=== PATIENT | male | born 1975 | race Caucasian/White ===

== ENCOUNTER 2017-07-13 23:05 | Observation (INO) | payer BC, OTHER ==
[2017-07-13 23:17] VITALS: BMI 36.0
--- NOTE | 2017-07-14 00:24 | ED PDOC ---
Arrival/HPI - General Chief Complaint: Chest Pain Time Seen by Provider: 07/13/17 23:18 Historian: Patient - History of Present Illness Narrative History of Present Illness (Text): 07/14/17 00:11 Jose Roberto Clay is a 41 year old male smoker, whose past medical history includes hypertension and hyperlipidemia, who presents to the Emergency department complaining of chest pain. Patient states he has been experiencing mid-sternal chest pressure since yesterday radiating to his neck and right arm. Patient notes he was seen by PMD yesterday for similar complaint and advised to come to the ER for further evaluation but was unable to due to a prior engagement. Patient states pain worsened today and he took Aspirin at home prior to presenting to the Emergency room. Patient reports he is non-compliant with his hypertension medication. Patient denies any fever, chills, shortness of breath, nausea, vomiting, diarrhea, urinary symptoms, back pain, neck pain, headache, dizziness, trauma/injury, or any other complaints. PMD: Dr. Alston Symptom Onset: Gradual Symptom Course: Unchanged Activities at Onset: Light Context: Home Past Medical History - Provider Review Nursing Documentation Reviewed: Yes - Past Medical History Past Medical History: No Previous - Cardiac Hx Cardiac Disorders: No - Pulmonary Hx Respiratory Disorders: No - Neurological Hx Neurological Disorder: No - HEENT Hx HEENT Disorder: No - Renal Hx Renal Disorder: No - Endocrine/Metabolic Hx Endocrine Disorders: Yes Other/Comment: Fatty liver - Hematological/Oncological Hx Blood Disorders: No - Integumentary Hx Dermatological Disorder: No - Musculoskeletal/Rheumatological Hx Musculoskeletal Disorders: No - Gastrointestinal Hx Gastrointestinal Disorders: No - Genitourinary/Gynecological Hx Genitourinary Disorders: No - Psychiatric Hx Depression: No Hx Emotional Abuse: No Hx Physical Abuse: No Hx Substance Use: No - Past Surgical History Past Surgical History: No Previous - Suicidal Assessment Feels Threatened In Home Enviroment: No Family/Social History - Physician Review Nursing Documentation Reviewed: Yes Family/Social History: Unknown Family HX Smoking Status: Never Smoked Hx Alcohol Use: No Hx Substance Use: No Allergies/Home Meds Allergies/Adverse Reactions: Allergies No Known Allergies Allergy (Verified 07/13/17 23:17) Home Medications: Home Meds Medication Instructions Recorded Confirmed No Known Home Med 07/13/17 07/13/17 Review of Systems - Physician Review All systems were reviewed & negative as marked: Yes - Review of Systems Constitutional: Normal. absent: Fevers Eyes: Normal ENT: Normal Respiratory: Normal. absent: SOB, Cough Cardiovascular: Chest Pain Gastrointestinal: Normal. absent: Abdominal Pain, Diarrhea, Nausea, Vomiting Genitourinary Male: Normal. absent: Dysuria, Frequency, Hematuria, Urinary Output Changes Musculoskeletal: Neck Pain. absent: Back Pain Skin: Normal. absent: Rash Neurological: Normal. absent: Headache, Dizziness Endocrine: Normal Hemo/Lymphatic: Normal Psychiatric: Normal Physical Exam Vital Signs Reviewed: Yes Vital Signs Temp Pulse Resp BP Pulse Ox 07/14/17 01:23 71 16 118/75 95 07/14/17 00:26 97.4 F L 82 18 106/64 95 Temperature: Afebrile Blood Pressure: Normal Pulse: Regular Respiratory Rate: Normal Appearance: Positive for: Well-Appearing, Non-Toxic, Comfortable Pain Distress: None Mental Status: Positive for: Alert and Oriented X 3 - Systems Exam Head: Present: Atraumatic, Normocephalic Pupils: Present: PERRL Extroacular Muscles: Present: EOMI Conjunctiva: Present: Normal Mouth: Present: Moist Mucous Membranes Neck: Present: Normal Range of Motion Respiratory/Chest: Present: Clear to Auscultation, Good Air Exchange. No: Respiratory Distress, Accessory Muscle Use Cardiovascular: Present: Regular Rate and Rhythm, Normal S1, S2. No: Murmurs Abdomen: No: Tenderness, Distention, Peritoneal Signs Back: Present: Normal Inspection Upper Extremity: Present: Normal Inspection. No: Cyanosis, Edema Lower Extremity: Present: Normal Inspection. No: Edema Neurological: Present: GCS=15, CN II-XII Intact, Speech Normal Skin: Present: Warm, Dry, Normal Color. No: Rashes Psychiatric: Present: Alert, Oriented x 3, Normal Insight, Normal Concentration Medical Decision Making ED Course and Treatment: 07/14/17 00:11 Impression: 41 year old male complaining of mid-sternal chest pressure radiating to right arm and neck since yesterday. Plan: -- EKG -- Chest X-ray -- Labs, cardiac enzymes -- UA -- Reassess and disposition Progress Notes: Reviewed EKG, NSR at [address] Non-specific ST/T wave changes. 07/14/17 01:[address] Alston, who is aware and agrees with plan. Accepts pt in to her service. Pt will go to Telemetry observation for chest pain. Pt agreeable with plan. 07/14/17 02:00 Chest X-ray reviewed, shows no acute processes. - Lab Interpretations Lab Results: 07/14/17 00:40 07/14/17 00:40 Lab Results 07/14/17 01:10: Urine Color Straw, Urine Appearance Clear, Urine pH 6.0, Ur Specific [place] >= 1.030, Urine Protein Negative, Urine Glucose (UA) Negative, Urine Ketones Trace H, Urine Blood Negative, Urine Nitrate Negative, Urine Bilirubin Negative, Urine Urobilinogen 0.2, Ur Leukocyte Esterase Negative 07/14/17 00:40: Sodium 144, Potassium 4.4, Chloride 105, Carbon Dioxide 28, Anion Gap 15, BUN 16, Creatinine 0.9, Est GFR ( Amer) > 60, Est GFR (Non- Af Amer) > 60, Random Glucose 131 H, Calcium 9.5, Magnesium 2.1, Total Bilirubin 0.2, AST 49, ALT 69 H, Alkaline Phosphatase 64, Lactate Dehydrogenase 528, Total Creatine Kinase 258 H, CK-MB (CK-2) 1.2, CK-MB (CK-2) % Cancelled, Troponin I < 0.01, Total Protein 7.8, Albumin 4.4, Globulin 3.4, Albumin/ Globulin Ratio 1.3 07/14/17 00:40: WBC 9.4, RBC 4.81, Hgb 15.0, Hct 43.1, MCV 89.6, MCH 31.2, MCHC 34.8, RDW 13.1, Plt Count 215, MPV 11.4 H, Gran % 60.0, Lymph % (Auto) 33.6, Stephens % (Auto) 5.0, Eos % (Auto) 1.2 L, Baso % (Auto) 0.2, Gran # 5.63, Lymph # ( Auto) 3.2, Stephens # (Auto) 0.5, Eos # (Auto) 0.1, Baso # (Auto) 0.02 I have reviewed the lab results: Yes - RAD Interpretation Radiology Orders: 07/14/17 00:35 CHEST PORTABLE [RAD] Stat Slasher: ED Physician - EKG Interpretation Interpreted by ED Physician: Yes Type: 12 lead EKG - Medication Orders Current Medication Orders: Acetaminophen (Tylenol 325mg Tab) 650 mg PO Q4H PRN PRN Reason: Pain, Mild (1-3) Last Admin: 07/14/17 08:05 Dose: 650 mg MAR Pain/Vitals Document 07/14/17 08:05 CV (Rec: 07/14/17 08:06 CV [id number]) Pain Reassessment Is This A Pain ReAssessment? No Sleep Is patient sleeping during reassessment? 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 Yes Sleep Is patient sleeping during reassessment? No Presence of Pain Presence of Pain No Aspirin (Ecotrin) 81 mg PO DAILY ESPERANZA Last Admin: 07/14/17 09:59 Dose: 81 mg Enoxaparin Sodium (Lovenox) 40 mg SC DAILY ESPERANZA PRN Reason: Protocol Last Admin: 07/14/17 09:59 Dose: 40 mg Subcutaneous Administrations Document 07/14/17 09:59 CV (Rec: 07/14/17 09:59 CV [id number]) Injection Site MAR Injection Site Right Abdomen Charges for Administration # of Subcutaneous Administrations 1 Famotidine (Pepcid) 40 mg PO HS ESPERANZA Discontinued Medications Enoxaparin Sodium (Lovenox) 95 mg SC STAT STA PRN Reason: Protocol Stop: 07/14/17 04:24 Last Admin: 07/14/17 04:35 Dose: 95 mg Subcutaneous Administrations Document 07/14/17 04:35 SRE (Rec: 07/14/17 04:35 SRE [id number]) Injection Site MAR Injection Site Right Abdomen Charges for Administration # of Subcutaneous Administrations 1 Nitroglycerin (Nitro-Bid 2% Oint) 1 ea TOP ONCE STA Stop: 07/14/17 01:29 Last Admin: 07/14/17 01:40 Dose: 1 ea - Scribe Statement The provider has reviewed the documentation as recorded by the Scribe Remedios Vega All medical record entries made by the Scribe were at my direction and personally dictated by me. I have reviewed the chart and agree that the record accurately reflects my personal performance of the history, physical exam, medical decision making, and the department course for this patient. I have also personally directed, reviewed, and agree with the discharge instructions and disposition. Disposition/Present on Arrival - Present on Arrival Any Indicators Present on Arrival: No History of DVT/PE: No History of Uncontrolled Diabetes: No Urinary Catheter: No History of Decub. Ulcer: No History Surgical Site Infection Following: None - Disposition Have Diagnosis and Disposition been Completed?: Yes Diagnosis: Chest pain Disposition: HOSPITALIZED Disposition Time: 01:30 Condition: GOOD
[2017-07-14 00:50] LABS: BASO # 0.02 K/mm3 (0.0-2.0); BASO % 0.2 % (0.0-3.0); EOS # 0.1 (0.0-0.7); EOS % 1.2 % (1.5-5.0); GRAN # 5.63 (1.4-6.5); LYMPH # 3.2 (1.2-3.4); LYMPH % 33.6 % (22.0-35.0); MEAN CELL VOLUME 89.6 fl (80.0-105.0); MEAN CORPUSCULAR HEMOGLOBIN 31.2 pg (25.0-35.0); MEAN CORPUSCULAR HGB CONC 34.8 g/dl (31.0-37.0); MEAN PLATELET VOLUME 11.4 fl (7.0-11.0); MONO # 0.5 (0.1-0.6); RBC 4.81 10^6/uL (3.5-6.1); RED CELL DISTRIBUTION WIDTH 13.1 % (11.5-14.5); WHITE BLOOD COUNT 9.4 10^3/ul (4.5-11.0)
[2017-07-14 01:03] LABS: ALB/GLOB RATIO 1.3 (1.1-1.8); ALBUMIN 4.4 g/dL (3.0-4.8); CALCIUM 9.5 mg/dL (8.4-10.5); GFR AFRICAN-AMERICAN > 60; GFR NON-AFRICAN AMERICAN > 60
[2017-07-14 01:07] LABS: ALT/SGPT 69 U/L (7-56); AST/SGOT 49 U/L (17-59); BLOOD UREA NITROGEN 16 mg/dL (7-21)
[2017-07-14 01:15] LABS: TROPONIN I < 0.01 ng/mL
[2017-07-14 01:19] LABS: URINE BILIRUBIN NEGATIVE (NEGATIVE); URINE BLOOD NEGATIVE (NEGATIVE); URINE GLUCOSE (UA) NEGATIVE (NEGATIVE); URINE LEUKOCYTE ESTERASE NEGATIVE Leu/uL (NEGATIVE); URINE PROTEIN NEGATIVE mg/dL (<30 mg/dL); URINE UROBILINOGEN 0.2 E.U./dL (<1 E.U./dL)
[2017-07-14 01:20] LABS: URINE APPEARANCE CLEAR (CLEAR); URINE COLOR STRAW (YELLOW)
[2017-07-14 01:22] LABS: CK-MB 1.2 ng/mL (0.0-3.6)
[2017-07-14] MEDS ORDERED: Nitroglycerin 2% Ointment Foilpak UD TOP STA (01:28)
--- NOTE | 2017-07-14 04:09 | CP.PCM.PN ---
Subjective - Date & Time of Evaluation Date of Evaluation: 07/14/17 Time of Evaluation: 03:40 - Subjective Subjective: Pt seen for his c/o chest pain . He states the pain is located across the chest,goes to the R arm and is accompanied by mild SOB.At present the pain is a 5 on a scale of 1 to 10. He describes the pain as a pressure which is worse on deep breathing.He also c/ o R calf pain butdenies any history of injury. NTG 2% Ointment is noted on his chest.Pt claims to have no relief with that. VS are stable. Objective - Vital Signs/Intake and Output Vital Signs (last 24 hours): Temp Pulse Resp BP Pulse Ox 97.8 F 74 20 111/69 95 07/14/17 03:19 07/14/17 03:19 07/14/17 03:19 07/14/17 03:19 07/14/17 01:23 - Medications Medications: Current Medications Acetaminophen (Tylenol 325mg Tab) 650 mg PO Q4H PRN PRN Reason: Pain, Mild (1-3) Last Admin: 07/14/17 03:31 Dose: 650 mg - Constitutional Appears: Non-toxic, Other (appears to be in mild distress due to chest pain) - Head Exam Head Exam: ATRAUMATIC, NORMAL INSPECTION, NORMOCEPHALIC - Eye Exam Eye Exam: PERRL - ENT Exam ENT Exam: Mucous Membranes Moist - Neck Exam Neck Exam: Normal Inspection - Respiratory Exam Respiratory Exam: Clear to Ausculation Bilateral, NORMAL BREATHING PATTERN. absent: Chest Wall Tenderness Additional comments: chest pain is not reproducible on palpation. - Cardiovascular Exam Cardiovascular Exam: REGULAR RHYTHM - GI/Abdominal Exam GI & Abdominal Exam: Soft, Normal Bowel Sounds. absent: Tenderness - Extremities Exam Extremities Exam: Calf Tenderness (R calf is tender on palpation.). absent: Pedal Edema - Neurological Exam Neurological Exam: Alert, Awake, Oriented x3 - Skin Skin Exam: Dry, Normal Color, Warm. absent: Diaphoretic Assessment and Plan - Assessment and Plan (Free Text) Assessment: Chest pain ,pleuritic pain.Possible PE Pain R calf Plan: CT angiocath ordered for PE protocol stat Dimer ordered stat. Lovenox 95 mg SC ordered stat. DVT study of RLE ordered stat. Follow up :CT angiocath reported negative for PE. Pt's chest pain could be muscular pain.
[2017-07-14] MEDS ORDERED: Enoxaparin 100 mg Syringe SC STA (04:23)
[2017-07-14] MEDS ORDERED: Iodixanol 320 MG/ML 100 ML BOTTLE IV ONE (04:28)
--- NOTE | 2017-07-14 05:36 | CT ---
EXAM: CT Angiography Chest With Intravenous Contrast CLINICAL HISTORY: 41 years old, male; Pain; Chest pain; Other: Pleuritic; Additional info: Pleuritic chest pain TECHNIQUE: Axial computed tomographic angiography images of the chest with intravenous contrast using pulmonary embolism protocol. All CT scans at this facility use one or more dose reduction techniques, viz.: automated exposure control; ma/kV adjustment per patient size (including targeted exams where dose is matched to indication; i.e. head); or iterative reconstruction technique. MIP reconstructed images were created and reviewed. Coronal and sagittal reformatted images were created and reviewed. CONTRAST: 96 mL of VISI 320 administered intravenously. COMPARISON: No relevant prior studies available. FINDINGS: Limitations: Motion artifact - mild. Pulmonary arteries: No definite pulmonary embolism. Aorta: No aneurysm. No dissection. Lungs: No consolidation. Few pulmonary nodules, up to 0.3 cm. Pleural space: No significant effusion. No pneumothorax. Heart: No cardiomegaly. No significant pericardial effusion. Bones/joints: No acute fracture. Soft tissues: Minimal gynecomastia. Lymph nodes: No pathologically enlarged lymph nodes. Liver: Fatty infiltration. IMPRESSION: 1. No definite CT evidence of pulmonary embolism. 2. Pulmonary nodules. For low-risk patients, no follow-up is necessary. For high-risk patients (smoking history or other known risk factors) an optional CT at 12 months could be performed. 3. Incidental/non-acute findings are described above.
[2017-07-14 08:38] LABS: INR 1.01 (0.93-1.08); PROTHROMBIN TIME 11.6 SECONDS (9.4-12.5)
--- NOTE | 2017-07-14 09:15 | RAD ---
HISTORY: cp COMPARISON: No prior. FINDINGS: LUNGS: No active pulmonary disease. PLEURA: No significant pleural effusion identified, no pneumothorax apparent. CARDIOVASCULAR: Normal. OSSEOUS STRUCTURES: No significant abnormalities. VISUALIZED UPPER ABDOMEN: Normal. OTHER FINDINGS: None. IMPRESSION: No active disease.
[2017-07-14 09:31] LABS: HDL CHOLESTEROL 25 mg/dL (29-60)
[2017-07-14 09:42] LABS: LDL CHOLESTEROL 85 mg/dL (0-129)
[2017-07-14] MEDS: Enoxaparin 40 mg Syringe SC SCH (09:59)
--- NOTE | 2017-07-14 10:13 | US ---
PROCEDURE: Right lower extremity venous US HISTORY: Leg pain and swelling. Evaluate for DVT. PHYSICIAN(S): Camilo Talbot M.D. TECHNIQUE: Duplex sonography and color-flow Doppler with graded compression were used to evaluate the deep venous system of the right lower extremity. FINDINGS: The visualized deep venous system of the right lower extremity is sonographically normal and compressible. Normal waveforms and augmentation are seen. There is no sonographic evidence for deep venous thrombosis in the visualized segments of the right lower extremity. IMPRESSION: 1. No sonographic evidence for deep venous thrombosis in the visualized segments of the right lower extremity.
--- NOTE | 2017-07-14 10:58 | CARD ---
APPROVED REPORT EKG Measurement Heart [id number] SC 150P11 [id number] <Conclusion> Normal sinus rhythm
--- NOTE | 2017-07-14 11:07 | CARD ---
APPROVED REPORT EKG Measurement Heart [id number] VT 150P27 [id number] <Conclusion> Normal sinus rhythm
--- NOTE | 2017-07-14 15:24 | CON ---
DATE: 07/14/2017 REASON FOR CONSULTATION: Chest pain, cardiac evaluation. BRIEF CLINICAL HISTORY: This is a 41-year-old [id number] obese male with no significant past medical history, history of active tobacco abuse, family history significant for coronary artery disease, came in with complaint of left-sided chest pain. Patient came to the emergency room. Works as a chief assistant pastry chef. Denies any prior episode of chest pain. Denies any dizziness on exertion or chest pain prior to exertion. PAST MEDICAL HISTORY: Nothing significant except borderline hypertension, hyperlipidemia. CURRENT MEDICATIONS: None. SOCIAL HISTORY: Active tobacco abuse. Used to smoke a pack to 2 pack a day before and started at the age of 16. Denies any history of alcohol abuse, but smokes a pack to 2, started at the age of 16. FAMILY HISTORY: Significant for coronary artery disease in father. ALLERGIES: NO KNOWN DRUG ALLERGIES. PHYSICAL EXAMINATION: As follows: VITAL SIGNS: Height of the patient 5 feet 4 inches, weight of the patient 206 pounds, body mass index 35.4 kg/m2. Temperature is afebrile, heart rate 76, blood pressure 114/74. HEENT: PERRLA. Extraocular muscles intact. NECK: Supple. No carotid bruit or thyromegaly. CHEST: Clear to auscultation. HEART: S1, S2 regular. ABDOMEN: Soft. EXTREMITIES: Clubbing and cyanosis negative. LABORATORY DATA: EKG shows normal sinus, LVH, poor R-R progression. Blood workup as follows: WBC 9.5, hemoglobin 15, hematocrit 43.1, platelet count 215. Chemistry shows sodium 144, potassium 4.4, chloride 105, carbon dioxide 28, anion gap of 15. BUN 16, creatinine 0.9. Troponin is 0.01. EKG as mentioned normal sinus, LVH with strain pattern. IMPRESSION: So far no evidence of acute myocardial infarction, multiple risk factors for coronary artery disease, suggest echo and a stress test. Further recommendation after stress test and echo. We will get the lipid profile, TSH, and hemoglobin A1C. We will follow with you. Thank you, Dr Alston, for providing us the opportunity in taking care of the patient, Jose Roberto Clay. Sinan Anaya MD
--- NOTE | 2017-07-14 16:01 | US ---
HISTORY: r/o GB disease COMPARISON: 11/09/2014 CT abdomen and pelvis. TECHNIQUE: Sonographic evaluation of the abdomen. FINDINGS: LIVER: Measures 17.1 cm. Hepatopedal blood flow. Fatty infiltration manifest ultrasonographically as increased echogenicity of the liver parenchyma. No mass. No intrahepatic bile duct dilatation. GALLBLADDER: Unremarkable. No gallstones. COMMON BILE DUCT: Measures 2.9 mm. No stones. No dilatation. PANCREAS: Unremarkable as visualized. No mass. No ductal dilatation. RIGHT KIDNEY: Measures 4.2 x 10.6cm. Normal echogenicity. No calculus, mass, or hydronephrosis. LEFT KIDNEY: Measures 5.5 x 10.9cm. Normal echogenicity. No calculus, mass, or hydronephrosis. SPLEEN: Normal in size and contour. No mass. AORTA: No aneurysmal dilatation. IVC: Obscured by overlying bowel gas. Non diagnostic assessment of the IVC OTHER FINDINGS: None. IMPRESSION: No evidence of cholelithiasis/ cholecystitis. Additional benign and/or incidental findings described above.
[2017-07-14 18:51] LABS: HEPATITIS B SURFACE AG Negative (NEGATIVE)
[2017-07-14 18:57] LABS: HEPATITIS B CORE AB NEGATIVE (NEGATIVE)
[2017-07-14 19:04] LABS: HEPATITIS A IGM NEGATIVE (NEGATIVE)
[2017-07-14 19:08] LABS: HEPATITIS C ANTIBODY NEGATIVE (NEGATIVE)
--- NOTE | 2017-07-14 21:06 | CARD ---
APPROVED REPORT Protocol: DAVID Test Type: Sestamibi Stress Test Attending Physician: Dr. Sinan Mckoy Referring Physician: Dr. Enedelia Alston Test Indications: Chest Pain Height:5 ft 4 in Weight:206lbs Medications: Tylenol,Aspirin,Lovenox,Pepsid Medical History: 41 y/o male. Hx of chest pain,hypertension, hyperlipidemia,smoke. Target HR: 179 bpm Resting ECG: RSR. Resting Heart Rate: 82 bpm Resting Blood Pressure: 104/80mmHg Submaximum (85%): 152 bpm POST EXERCISE Reason for Termination: Fatigue Target HR: No Max HR: 153 bpm 85% of Maximum Predicted HR: 179 bpm Exercise duration: 10:01 min:sec, 4 Stage Exercise capacity: 11.6METs Max Blood Pressure: 188/80mmHg Blood Pressure response to exercise: normal resting BP - appropriate response Heart Rate response to exercise: appropriate Chest Pain: No, none Angina index: 0 Arrhythmia: No, none ST Change: No, none Deviation: 0 mm TEST SUMMARY [id number]/.0. [id number]/80.0. PRETESTHYPERV.00:[id number]/80.0. PRETESTWARM-UP15:500.00.01.080/.0. EXERCISESTAGE 103:[id number]/70.0. EXERCISESTAGE 203:[id number]/70.0. EXERCISESTAGE 303:[id number]/80.0. EXERCISESTAGE 401:[id number]/80.0. AMYPOPOM69:[id number]/60.0. INTERPRETATION Stress EKG Conclusion: MYOVIEW NUCLEAR STRESS TEST STOPPED AFTER 10 MINUTES OF DAVID PROTOCOL DUE TO FATIGUE. PATIENT ACHIEVED 85% OF PREDICTED HEART RATE. NO CHEST PAIN. NO ST-T CHANGES. NUCLEAR SCAN REPORT PENDING. Signed by Sinan Mckoy Electronically Approved: 07/14/2017 13:40:18 EXAM: Myocardial Perfusion REST/STRESS Stress Test Type: Exercise Treadmill Imaging Protocol Rest Spect myocardial perfusion imaging was performed in supine position 50 minutes following the injection of 10.9 mCi of Tc-99 Myoview. At peak stress, the patient was injected intravenously with 30.9mCi of Tc-99 tetrofosmin after an exercise time of 10 minutes and 01 seconds. Gated Stress Spect was performed 80 minutes after intravenous Tc-99 Myoview injection. The images were gated to evaluate regional wall motion and calculate ventricular ejection fraction.Images were reconstructed using backfilter projection method in short horizontal and verticle long axis. Spect slices were generated. LV Perfusion The quality of the study is good. The left ventricle is normal in size. The right ventricle is unremarkable. The lung uptake is within normal limits. The distribution of tracer reveals normal uptake pattern throughout the LV myocardium on the stress study. The rest myocardial perfusion study shows no significant change. Wall Motion Wall motion study shows good contractility of the left ventricle. LVEF = 57%. Conclusion 1. Normal SPECT myocardial perfusion study. 2. Normal gated wall motion of the left ventricle.
[2017-07-15 01:33] VITALS: O2SAT 97
[2017-07-15 06:58] LABS: HEMOGLOBIN 14.6 g/dL (14.0-18.0); MEAN CORPUSCULAR HEMOGLOBIN 30.9 pg (25.0-35.0); MEAN CORPUSCULAR HGB CONC 34.7 g/dl (31.0-37.0); MEAN PLATELET VOLUME 11.5 fl (7.0-11.0); RBC 4.73 10^6/uL (3.5-6.1); RED CELL DISTRIBUTION WIDTH 12.9 % (11.5-14.5); WHITE BLOOD COUNT 8.6 10^3/ul (4.5-11.0)
[2017-07-15 08:14] LABS: BLOOD UREA NITROGEN 13 mg/dL (7-21); CALCIUM 9.4 mg/dL (8.4-10.5); GFR AFRICAN-AMERICAN > 60; GFR NON-AFRICAN AMERICAN > 60
--- NOTE | 2017-07-15 08:46 | HP ---
CHIEF COMPLAINT: Chest pain, gassy stomach. HISTORY OF PRESENT ILLNESS: Mr. Jose Roberto Clay is 41 years old, my private patient with history of smoking, came actually in my office for chest pain and gassy stomach. I advised him to go to emergency room. He has still hypertension, hypercholesterolemia, history of smoking, now came in the emergency room for chest pain. The patient states that he has been experiencing midsternal chest pain since yesterday radiating to his neck and right arm. Patient noticed that he was seen by primary care physician, advised to go to ER for further evaluation, was unable to due to prior engagement. The patient's chest pain worsened today that brought him to the emergency room. He took aspirin at home prior to coming to the emergency room. Patient reports he is noncompliant with these hypertensive medication. Patient denies any fever or chills. No nausea, vomiting or diarrhea. No hematuria or hematochezia. No swelling of the leg. No chest pain. No palpitation. No headache. No dizziness. PAST MEDICAL HISTORY: Fatty liver, hypertension, hypercholesterolemia, noncompliant. FAMILY HISTORY: Father and mother noncontributory. HABITS: History of smoking. No alcohol. No substance abuse. ALLERGIES: PATIENT IS NOT ALLERGIC WITH ANY MEDICATION. HOME MEDICATIONS: Denied. REVIEW OF SYSTEMS: The patient is seen and examined on the bedside in the cardiac department. No nausea, vomiting or diarrhea. No hematuria or hematochezia. movement, still having mild chest pain. No shortness of breath. Sometimes feeling gassy. No dysuria. No frequency. No hematuria. No urinary or output problem. No back pain. No headache. No dizziness. PHYSICAL EXAMINATION: VITAL SIGNS: Temperature 97.4, pulse 82, respiratory rate 18, blood pressure 106/64, pulse oximetry 95. HEENT: Head: Normocephalic, atraumatic. Eyes: PERRLA. Extraocular movements intact. Conjunctivae clear. Nose patent. Mucous membrane moist. NECK: Supple, no carotid bruit. No JVD or thyromegaly. CHEST: Bilaterally symmetrical. HEART: S1 and S2 positive. LUNGS: Clear to auscultation. ABDOMEN: Soft, bowel sounds positive. No organomegaly. EXTREMITIES: No edema, no cyanosis. NEUROLOGICAL: The patient is awake, alert. Moving all 4 extremities. No focal deficits. LABORATORY DATA: WBC is 9.4, hemoglobin 15, hematocrit 43.1, platelets 215. Sodium 144, potassium 4.4, BUN 15, creatinine 0.9, glucose 131. ASSESSMENT AND PLAN: Mr. Jose Roberto Clay is a 41-year-old male, came with chest pain, history of smoking, hypertension, hypercholesterolemia, noncompliant. We admitted the patient due to cardiac enzymes x3. Went for echocardiography, abdominal ultrasound, history of abdominal liver function tests, seen by linux admin engineer, Dr. Anaya. Extremity ultrasound is done. CT of chest is done. Shows a definite CT evidence of pulmonary embolism, pulmonary nodules. No followup is necessary for high-risk patient's smoking history of other known factors. An outpatient CT at 12 months could be performed, incidentally acute findings as determined above. Abdominal ultrasound is appreciated. Repeat labs. Continue present treatment. We will do a TSH and lipid profile. Enedelia Alston MD MTDD
--- NOTE | 2017-07-15 10:14 | CP.PCM.PN ---
Subjective - Date & Time of Evaluation Date of Evaluation: 07/15/17 Time of Evaluation: 09:10 - Subjective Subjective: Denies chest pain, doing okay, denies shortness of breath Reason for consult and follow up: Cardiac evaluation for chest pain Seen and examined by me and Dr. Anaya Objective - Vital Signs/Intake and Output Vital Signs (last 24 hours): Temp Pulse Resp BP Pulse Ox 97.6 F 63 18 124/79 97 07/15/17 06:00 07/15/17 06:00 07/15/17 06:00 07/15/17 06:00 07/15/17 06:00 Intake and Output: 07/15/17 07/15/17 06:59 18:59 Intake Total 1320 Balance 1320 - Medications Medications: Current Medications Acetaminophen (Tylenol 325mg Tab) 650 mg PO Q4H PRN PRN Reason: Pain, Mild (1-3) Last Admin: 07/14/17 08:05 Dose: 650 mg Aspirin (Ecotrin) 81 mg PO [facility] Last Admin: 07/14/17 09:59 Dose: 81 mg Enoxaparin Sodium (Lovenox) 40 mg SC [facility] PRN Reason: Protocol Last Admin: 07/14/17 09:59 Dose: 40 mg Famotidine (Pepcid) 40 mg PO [facility] Last Admin: 07/14/17 21:46 Dose: 40 mg Fenofibrate (Tricor) 145 mg PO [facility] - Labs Labs: 07/15/17 06:00 07/15/17 06:00 PT 11.6 SECONDS (9.4-12.5) 07/14/17 08:10 INR 1.01 (0.93-1.08) 07/14/17 08:10 - Constitutional Appears: No Acute Distress - Eye Exam Eye Exam: Normal appearance Pupil Exam: NORMAL ACCOMODATION - ENT Exam ENT Exam: Mucous Membranes Moist - Neck Exam Neck Exam: Full ROM, Normal Inspection - Respiratory Exam Respiratory Exam: Clear to Ausculation Bilateral, NORMAL BREATHING PATTERN - Cardiovascular Exam Cardiovascular Exam: REGULAR RHYTHM, +S1, +S2 Additional comments: no JVD - GI/Abdominal Exam GI & Abdominal Exam: Soft, Normal Bowel Sounds - Extremities Exam Extremities Exam: Full ROM, Normal Capillary Refill - Neurological Exam Neurological Exam: Alert, Awake, Oriented x3 - Psychiatric Exam Psychiatric exam: Normal Affect, Normal Mood - Skin Skin Exam: Intact, Normal Color, Warm Assessment and Plan - Assessment and Plan (Free Text) Assessment: A 41 year old male came in to the ER due to chest pain. Denies any medical history. Mildly obese.current smoker 2 packs per day since age 16. borderline hypertension, hypercholesterolemia, denies prior chest pain or shortness of breath. Plan: Stress test done yesterday Normal Stress test, LVEF-57 % EKG-Normal sinus rhythm 70's Negative troponins ECHO done awaiting final reading/result No evidence of myocardial infarction Diet and lifestyle modification Smoking cessation On Tricor 140 mg daily and ASA 81 mg daily Continue current medications Continue current treatment Possible discharge today,follow up in office 1-2 weeks Will follow up Plan and treatment discussed with Dr. Anaya
[2017-07-15] MEDS: Enoxaparin 40 mg Syringe SC SCH (11:14)
[2017-07-15 12:23] VITALS: BP 120/74; PULSE 78; RESP 16; TEMP 98.6
--- NOTE | 2017-07-15 18:12 | CP.PCM.PN ---
Subjective - Date & Time of Evaluation Date of Evaluation: 07/15/17 Time of Evaluation: 11:40 - Subjective Subjective: Seen and examined at the bedside earlier today, chart was reviewed. Patient with no new complaints. Denies nausea, vomiting, shortness of breath chest pain or abdominal pain. No reports of overt GI bleed or acute overnight events. Objective - Vital Signs/Intake and Output Vital Signs (last 24 hours): Temp Pulse Resp BP Pulse Ox 98.6 F 78 16 120/74 97 07/15/17 12:00 07/15/17 12:00 07/15/17 12:00 07/15/17 12:00 07/15/17 06:00 Intake and Output: 07/15/17 07/15/17 06:59 18:59 Intake Total 1320 Balance 1320 - Labs Labs: 07/15/17 06:00 07/15/17 06:00 PT 11.6 SECONDS (9.4-12.5) 07/14/17 08:10 INR 1.01 (0.93-1.08) 07/14/17 08:10 - Constitutional Appears: No Acute Distress - Head Exam Head Exam: NORMOCEPHALIC - Eye Exam Eye Exam: Normal appearance. absent: Scleral icterus - ENT Exam ENT Exam: Mucous Membranes Moist - Neck Exam Neck Exam: Normal Inspection - Respiratory Exam Respiratory Exam: NORMAL BREATHING PATTERN. absent: Respiratory Distress - Cardiovascular Exam Cardiovascular Exam: +S1, +S2 - GI/Abdominal Exam GI & Abdominal Exam: Soft, Normal Bowel Sounds. absent: Guarding, Tenderness, Rebound - Extremities Exam Extremities Exam: absent: Calf Tenderness, Pedal Edema - Neurological Exam Neurological Exam: Alert, Awake, Oriented x3 - Skin Skin Exam: Dry, Warm Assessment and Plan - Assessment and Plan (Free Text) Assessment: Assessment: Atypical chest pain, status post stress test that was negative/abdominal ultrasound nogallstones, CBD measures 2.9 cm GERD Nicotine use Fatty liver Hypertension Hyperlipidemia Plan: Nicotine abstinence discussed with patient Continue Pepcid Discussed with patient elective outpatient endoscopy. Plan for discharge today Discussed with Dr. Cook.
--- NOTE | 2017-07-15 19:42 | CARD ---
APPROVED REPORT EXAM: Two-dimensional and M-mode echocardiogram with Doppler and color Doppler. INDICATION Chest Pain 2D DIMENSIONS Left Atrium (2D)3.9 (1.6-4.0cm)IVSd0.7 (0.7-1.1cm) LVDd4.4 (3.9-5.9cm)PWd1.1 (0.7-1.1cm) LVDs3.1 (2.5-4.0cm)FS (%) 31.0 % LVEF (%)58.9 (>50%) M-Mode DIMENSIONS Aortic Root3.20 (2.2-3.7cm)Aortic Cusp Exc.1.80 (1.5-2.0cm) Aortic Valve AoV Peak Wxbetunf835.0cm/José Peak GR.6mmHg Mitral Valve MV E Yoggsxns12.5cm/sMV A Woztfhmq34.2cm/sE/A ratio1.2 TDI Lateral E' Peak V14.60cm/sMedial E' Peak V8.77cm/sE/Lateral E'5.4 E/Medial E'9.0 Pulmonary Valve PV Peak Cgsdvqcx32.2cm/sPV Peak Grad.2mmHg Tricuspid Valve TR Peak [id number]/sRAP [id number] Peak Gr.12mmHg [id number] LEFT VENTRICLE The left ventricle is normal size. There is normal left ventricular wall thickness. The left ventricular function is normal.EF-55-60% There is normal LV segmental wall motion. The left ventricular diastolic function is normal. No left ventricle thrombus noted on this study. There is no ventricular septal defect visualized. There is no ventricular septal defect visualized. There is no left ventricular aneurysm. There is no mass noted in the left ventricle. RIGHT VENTRICLE The right ventricle is normal size. There is normal right ventricular wall thickness. The right ventricular systolic function is normal. ATRIA The left atrium size is normal. The right atrium size is normal. The interatrial septum is intact with no evidence for an atrial septal defect. AORTIC VALVE The aortic valve is normal in structure. No aortic regurgitation is present. There is no aortic valvular stenosis. There is no aortic valvular vegetation. MITRAL VALVE The mitral valve is normal in structure. Mitral regurgitation is trace. There is no mitral valve stenosis. There is no evidence of mitral valve prolapse. TRICUSPID VALVE The tricuspid valve is normal in structure. There is trace tricuspid regurgitation. There is no tricuspid valve stenosis. There is no tricuspid valve prolapse or vegetation. PULMONIC VALVE The pulmonary valve is normal in structure. There is no pulmonic valvular regurgitation. There is no pulmonic valvular stenosis. GREAT VESSELS The aortic root is normal in size. The ascending aorta is normal in size. The pulmonary artery is normal. The IVC is normal in size and collapses >50% with inspiration. PERICARDIAL EFFUSION There is no pleural effusion. There is no pericardial effusion. <Conclusion> Normal chamber size. [id number] trace MR/TR. RVSP-22 mmof hg.
== END 2017-07-15 13:06 | disposition home or self-care (01) ==
LOC: ED 23:05 → ERH 07-14 01:25 → 2RNO 07-14 03:09
PROVIDERS: ADMIT Internal Medicine; ATTEND Internal Medicine
DX: R07.89 Other chest pain (principal); K21.9 Gastro-esophageal reflux disease without esophagitis; Z72.0 Tobacco use; K76.0 Fatty (change of) liver, not elsewhere classified; I10 Essential (primary) hypertension; E78.5 Hyperlipidemia, unspecified; E78.00 Pure hypercholesterolemia, unspecified; E66.9 Obesity, unspecified; I26.99 Other pulmonary embolism without acute cor pulmonale; R91.8 Other nonspecific abnormal finding of lung field; Z91.14 Patient's other noncompliance with medication regimen; Z91.19 Patient's noncompliance with other medical treatment and regimen; Z82.49 Family history of ischemic heart disease and other diseases of the circulatory system; R40.2412 Glasgow coma scale score 13-15, at arrival to emergency department; Z68.35 Body mass index [BMI] 35.0-35.9, adult
CPT/HCPCS: 36415; 71045; 71275; 76700; 78452; 80048; 80053; 80061; 80074; 81003; 82550; 82553; 83036; 83615; 83735; 84443; 84484; 85025; 85027; 85378; 85610; 93005; 93017; 93306; 93971; 96372; 99285; A9502; G0378; J1650; Q9967

== ENCOUNTER 2017-12-31 00:33 | Emergency (ER) | payer BC ==
[2017-12-31 00:33] VITALS: BMI 36.0
== END 2017-12-31 01:41 | disposition left against medical advice (07) ==
LOC: ED 00:33
DX: Z02.89 Encounter for other administrative examinations (principal); R10.9 Unspecified abdominal pain

== ENCOUNTER 2018-08-17 17:08 | Emergency (ER) | payer BC ==
[2018-08-17 17:09] VITALS: BMI 36.0
[2018-08-17 17:55] VITALS: TEMP 99.2
[2018-08-17] MEDS ORDERED: Sodium Chloride 0.9% 1,000 ML IV STA (18:12)
[2018-08-17 18:25] LABS: BASO # 0.01 K/mm3 (0.0-2.0); BASO % 0.1 % (0.0-3.0); EOS # 0.1 (0.0-0.7); EOS % 0.4 % (1.5-5.0); HEMOGLOBIN 16.5 g/dL (14.0-18.0); LYMPH # 1.3 (1.2-3.4); LYMPH % 9.1 % (22.0-35.0); MEAN CELL VOLUME 88.5 fl (80.0-105.0); MEAN CORPUSCULAR HEMOGLOBIN 30.5 pg (25.0-35.0); MEAN CORPUSCULAR HGB CONC 34.4 g/dl (31.0-37.0); MEAN PLATELET VOLUME 10.9 fl (7.0-11.0); MONO # 0.7 (0.1-0.6); RBC 5.41 10^6/uL (3.5-6.1); RED CELL DISTRIBUTION WIDTH 12.8 % (11.5-14.5)
--- NOTE | 2018-08-17 18:29 | ED PDOC ---
Arrival/HPI - General Chief Complaint: Abdominal Pain Time Seen by Provider: 08/17/18 18:03 Historian: Patient - History of Present Illness Narrative History of Present Illness (Text): 08/17/18 18:22 42 year old M with pmh of hypertension and hyperlipidemia presents complaining of diarrhea x20 since yesterday and vomiting x15 since this morning. Patient reports recently being visited by family members who have been recently di agnosed with viral gastroenteritis. He mentioned he have taken pepto bismol which has failed to relieve any symptoms. He denies any recent travel outside the country, any headache, dizziness, chest pain, shortness of breath. Time/Duration: < week Symptom Onset: Sudden Symptom Course: Unchanged Activities at Onset: Light Past Medical History - Provider Review Nursing Documentation Reviewed: Yes - Past Medical History Past Medical History: No Previous - Cardiac Hx Cardiac Disorders: Yes - Pulmonary Hx Respiratory Disorders: No - Neurological Hx Neurological Disorder: No - HEENT Hx HEENT Disorder: No - Renal Hx Renal Disorder: No - Endocrine/Metabolic Hx Endocrine Disorders: Yes Other/Comment: Fatty liver, HYPERGLYCEMIA - Hematological/Oncological Hx Blood Disorders: No - Integumentary Hx Dermatological Disorder: No - Musculoskeletal/Rheumatological Hx Musculoskeletal Disorders: No - Gastrointestinal Hx Gastrointestinal Disorders: No - Genitourinary/Gynecological Hx Genitourinary Disorders: No - Psychiatric Hx Psychophysiologic Disorder: No Hx Substance Use: No - Past Surgical History Past Surgical History: No Previous - Suicidal Assessment Feels Threatened In Home Enviroment: No Family/Social History - Physician Review Nursing Documentation Reviewed: Yes Family/Social History: Unknown Family HX Smoking Status: Never Smoked Hx Alcohol Use: No Hx Substance Use: No Allergies/Home Meds Allergies/Adverse Reactions: Allergies No Known Allergies Allergy (Verified 08/17/18 17:27) Review of Systems - Physician Review All systems were reviewed & negative as marked: Yes - Review of Systems Respiratory: absent: SOB Cardiovascular: absent: Chest Pain Physical Exam - Physical Exam Narrative Physical Exam (Text): 08/17/18 18:30 Constitutional: No acute distress. Head: Normocephalic. Atraumatic. Eyes: PERRL. ENT: Moist mucous membranes. Neck: Supple. Cardiovascular: Regular rate. Chest: No tenderness. Respiratory: Clear to auscultation bilaterally. GI: Soft. Nontender. Nondistended. Back: No CVA tenderness. Musculoskeletal: No tenderness or swelling of extremities. Skin: No rash. Neurologic: Alert, no focal deficit. Vital Signs Reviewed: Yes Vital Signs Temp Pulse Resp BP Pulse Ox 08/17/18 17:29 99.2 F 111 H 17 119/84 96 Temperature: Afebrile Blood Pressure: Normal Pulse: Regular Respiratory Rate: Normal Appearance: Positive for: Well-Appearing, Non-Toxic, Comfortable Pain Distress: Mild Mental Status: Positive for: Alert and Oriented X 3 Medical Decision Making ED Course and Treatment: 08/17/18 18:30 Impression: 42 year old M presents complaining of diarrhea x20 since yesterday and vomiting x15 since this morning Plan: -- Labs -- Zofran Patient with abdominal cramps prior to diarrhea after which cramps resolve. Feels well to go home. Instructed to return to ED for worsening pain, vomiting, dyspnea, fever, or any other problem. - Medication Orders Current Medication Orders: Sodium Chloride (Sodium Chloride 0.9%) 1,000 mls @ 999 mls/hr IV .Q1H1M STA Stop: 08/17/18 19:12 Discontinued Medications Ondansetron HCl (Zofran Inj) 8 mg IVP STAT STA Stop: 08/17/18 18:13 Disposition/Present on Arrival - Present on Arrival Any Indicators Present on Arrival: No History of DVT/PE: No History of Uncontrolled Diabetes: No Urinary Catheter: No History of Decub. Ulcer: No History Surgical Site Infection Following: None - Disposition Have Diagnosis and Disposition been Completed?: Yes Diagnosis: Diarrhea, Vomiting Disposition: HOME/ ROUTINE Disposition Time: 19:51 Patient Plan: Discharge Condition: FAIR Discharge Instructions (ExitCare): Viral Gastroenteritis Prescriptions: Ciprofloxacin [Cipro] 500 mg PO BID #14 tab Metronidazole [Flagyl] 500 mg PO Q8 #21 tab Ondansetron ODT [Zofran ODT] 8 mg PO Q8H PRN #12 odt PRN Reason: Nausea/Vomiting Forms: [employer] value (Jamaican)
[2018-08-17 18:33] LABS: ALB/GLOB RATIO 1.1 (1.1-1.8); ALBUMIN 4.8 g/dL (3.0-4.8); ALT/SGPT 54 U/L (7-56); AST/SGOT 38 U/L (17-59); BLOOD UREA NITROGEN 15 mg/dL (7-21); GFR NON-AFRICAN AMERICAN > 60; LIPASE 68 U/L (23-300)
[2018-08-17 19:48] VITALS: RESP 18; O2SAT 100
[2018-08-17 20:00] VITALS: BP 125/68; PULSE 95
== END 2018-08-17 19:59 | disposition home or self-care (01) ==
LOC: ED 17:08
DX: R19.7 Diarrhea, unspecified (principal); R11.10 Vomiting, unspecified; I10 Essential (primary) hypertension; E78.5 Hyperlipidemia, unspecified
CPT/HCPCS: 80053; 83690; 85025; 96374; 96375; 99283; J2405; J2765; J7030